=== PATIENT | male | born 1940 | race Caucasian/White ===

== ENCOUNTER 2023-06-14 07:42 | Outpatient (CLI) | payer MEDICARE, SELFPAY | END 2023-06-14 07:43 | disposition home or self-care (01) | PROVIDERS: Visit Provider Internal Medicine | DX: I48.0 Paroxysmal atrial fibrillation (principal); I35.1 Nonrheumatic aortic (valve) insufficiency; I34.0 Nonrheumatic mitral (valve) insufficiency; I42.9 Cardiomyopathy, unspecified; I10 Essential (primary) hypertension; I48.92 Unspecified atrial flutter; I77.89 Other specified disorders of arteries and arterioles; Z86.79 Personal history of other diseases of the circulatory system | CPT/HCPCS: 93306 ==

== ENCOUNTER 2023-08-12 13:38 | Outpatient (CLI) | payer MEDICARE, SELFPAY ==
--- NOTE | 2023-08-12 14:00 | CRLHL7_ITS ---
For Patients: As a result of the Century Cures Act, medical imaging exams and procedure reports are released immediately into your electronic medical record. You may view this report before your referring provider. If you have questions, please contact your health care provider. DXA BONE MINERAL DENSITY STUDY Current height (in): 7.20. Weight (lb): 175.0. Menopause age: Not applicable. Ethnicity: White. 1. Have you had a previous hip or vertebral fracture? No. 2. Have you had any fractures during your adult life which did not result from significant trauma (e.g., auto accident)? No. 3. Did either of your parents have a hip fracture? No. 4. Do you smoke? No. 5. Have you ever taken Glucocorticoids? No. 6. Do you have rheumatoid arthritis? No. 7. Do you have secondary osteoporosis? No. 8. Do you drink 3 or more alcoholic drinks per day? No. 9. Are you being treated for osteoporosis? No. 10. Have you ever taken any of the following medications: Actonel, Evista, Fosamax, Miacalcin, Reclast, Boniva, Forteo, HRT (i.e. estrogen/hormone therapy), Protelos, Prolia, Vitamin D, Calcium, other ??? please specify. ANSWER: Yes, Vitamin D, Calcium. 11. Do you have any of the following medical conditions: Anorexia or bulimia, asthma or emphysema, end stage renal disease, hyperparathyroidism, any seizure disorders, cancer, inflammatory bowel diseases, hysterectomy, other ??? please specify. ANSWER: Yes, Cancer. 12. What was your maximum height (inches)? 73. 13. Do you perform weight bearing exercise regularly? No. 14. Do you regularly consume dairy products? Yes. 15. Do you drink caffeinated beverages? Yes. TECHNIQUE: Bone mineral density study was performed using the [employer]. FINDINGS: The results of the study expressed as bone mineral density (BMD) are as follows: Lumbar spine L1 to L4: BMD: 0.927 g/cm2. T-score: -1.5. Z-score: -0.3. Neck Left: BMD: 0.635 g/cm2. T-score: -2.2 . Z-score: -0.6. Right: BMD: 0.577 g/cm2. T-score: -2.6 . Z-score:-1.0. Total Left: BMD: 0.743 g/cm2. T-score: -1.9 . Z-score: -0.8. Right: BMD: 0.674 g/cm2. T-score: -2.4 . Z-score: -0.8. VFA of thoracolumbar spine from T10-L4 demonstrates no vertebral body compression fracture. IMPRESSION: Osteoporosis. *Comparison exams done prior to 08/2019 were performed on different unit, mktg. Srikanth Tejeda M.D. Diagnostic Radiologist [email or web address] DSM/kiko JR/Dictated by: Srikanth Tejeda MD @ 08/16/2023 7:09:00 AM (Electronically Signed)
== END 2023-08-12 13:39 | disposition home or self-care (01) ==
LOC: RAD 13:41
PROVIDERS: Visit Provider Urology
DX: C61 Malignant neoplasm of prostate (principal); M81.0 Age-related osteoporosis without current pathological fracture
CPT/HCPCS: 77085

== ENCOUNTER 2024-01-13 16:52 | Emergency (ER) | payer MEDICARE, SELFPAY ==
[2024-01-13 17:08] VITALS: BP 176/72; PULSE 59; RESP 18; TEMP 36.4; O2SAT 98; BMI 25.2
--- NOTE | 2024-01-13 17:34 | ED.GENADULT ---
HPI - General Adult General Date Seen: 01/13/24 Chief complaint: Unspecified Complaint, Adult Stated complaint: low hemoglobin Time Seen by Provider: 01/13/24 16:56 Source: patient Mode of arrival: ambulatory Limitations: no limitations History of Present Illness HPI narrative: Patient is an 83-year-old male with a history of AFib on Eliquis and hypertension presenting to the emergency department for anemia. 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 Since then though the patient has been completely asymptomatic he states. We got a call today saying his hemoglobin was low at 7.4. He has no history of anemia that he is aware of. He spoke to the triage nurse and was told to come to the nearest emergency department. He has not noticed any blood in his stool or black tarry appearing stools. Denies fevers, chills, weakness, numbness, chest pain, current shortness of breath, abdominal pain, diarrhea, constipation, lightheadedness, dizziness. Related Data Home Medications ?Medication ?Instructions ?Recorded ?Confirmed amlodipine 10 mg tablet 10 mg PO DAILY 01/13/24 01/13/24 apixaban 5 mg tablet (Eliquis) 5 mg PO BID 01/13/24 01/13/24 metoprolol succinate 25 mg 25 mg PO DAILY 01/13/24 01/13/24 tablet,extended release 24 hr metoprolol succinate 50 mg 50 mg PO DAILY 01/13/24 01/13/24 tablet,extended release 24 hr prosteon calcium 500 mg PO BID 01/13/24 01/13/24 Allergies Allergy/AdvReac Type Severity Reaction Status Date / Time No Known Drug Allergies Allergy Verified 01/13/24 17:06 Review of Systems Status of ROS: Reports: 10 or more systems reviewed and unremarkable except as noted in History and below Exam Narrative: Exam Narrative: Const: Well-nourished, Well-developed, in no distress Eyes: PERRL, no conjunctival injection, and symmetrical lids HENT: Atraumatic external nose and ears. Moist mucous membranes. Neck: Symmetric, trachea midline, No thyromegaly. CVS: RRR, No murmurs or gallops. Peripheral pulses 2+ and equal in all extremities RESP: Unlabored respiratory effort. Clear to auscultation bilaterally. GI: Nontender/Nondistended, No rebound or guarding. MSK:Extremities w/o deformity, Normal Active ROM Skin: Warm, Dry. No rashes or lesions. Neuro: Normal Muscle tone, No focal neurological deficits. Psych: Awake, Alert, & Oriented x3. Appropriate mood and affect. Const: Vital Signs, click to edit/add: Vital Signs - 24 hr 01/13/24 17:08 Temperature 97.6 F Pulse Rate [Pulse Oximeter] 59 L Respiratory Rate 18 Blood Pressure [Ri ght Upper Arm] 176/72 H Pulse Oximetry 98 Oxygen Delivery Me thod Room Air Course Vital Signs Vital signs: Initial Vital Signs Temperature 97.6 F 01/13/24 17:08 Temperature Source Temporal Artery Scan 01/13/24 17:08 Pulse Rate 59 L 01/13/24 17:08 Respiratory Rate 18 01/13/24 17:08 Blood Pressure 176/72 H 01/13/24 17:08 Blood Pressure Mean 106 H 01/13/24 17:08 Blood Pressure Position Sitting 01/13/24 17:08 Pulse Oximetry 98 01/13/24 17:08 Oxygen Delivery Method Room Air 01/13/24 17:08 Vital Signs Temperature 97.6 F 01/13/24 17:08 Pulse Rate 59 L 01/13/24 17:08 Respiratory Rate 18 01/13/24 17:08 Blood Pressure 176/72 H 01/13/24 17:08 Pulse Oximetry 98 01/13/24 17:08 Oxygen Delivery Method Room Air 01/13/24 17:08 Temperature 97.6 F 01/13/24 17:08 Pulse Rate 59 L 01/13/24 17:08 Respiratory Rate 18 01/13/24 17:08 Blood Pressure 176/72 H 01/13/24 17:08 Pulse Oximetry 98 01/13/24 17:08 Oxygen Delivery Method Room Air 01/13/24 17:08 Medical Decision Making [facility] Narrative Medical decision making narrative: Patient is 83-year-old male presenting to emergency department for anemia. I did look at his previous records in epic and his most recent hemoglobin 1 year prior was 12.9. It was a microcytic anemia with that elevated RDW. Rest of his cell count lines were normal. I will do a fecal occult to look for signs of GI bleeding. Having no abdominal pain no other signs of internal bleeding at this time. Will order a type and screen, iron panel, ferritin, CBC, BMP, taking her psych count to better evaluate this low hemoglobin. Fecal occult is negative. His hemoglobin is up compared to yesterday is 8.5 today. It is a microcytic anemia. His iron studies are not really consistent with any particular microcytic anemia that I am aware of. CT is states his within normal limits. His sodium levels is around where it was yesterday. This is not a thing need to be admitted for. At this time I am not sure why he is anemic but he is asymptomatic and doing well with no signs of hemorrhaging anywhere and he can be discharged. I did give strict return precautions for any worsening symptoms. He and his agree with this plan. Lab Data Labs: Lab Results 01/13/24 01/13/24 01/13/24 Range/Units 17:30 17:35 18:10 WBC 6.72 (4.50-11.00) K/uL RBC 3.91 L (4.30-5.90) m/uL Hgb 8.5 L (13.5-17.5) gm/dL Hct 27.7 L (37.0-53.0) % MCV 71 L (80-100) fL MCH 22 L (26-34) pg MCHC 31 L (32-36) gm/dL RDW Coeff of Chong 15.4 (11.5-15.5) % Plt Count 315 (140-440) K/uL Neut % (Auto) 72.1 H (42.0-72.0) % Lymph % (Auto) 15.3 L (20-44) % [place] % (Auto) 8.3 (0.0-11.0) % Eos % (Auto) 3.9 (0.0-7.0) % Baso % (Auto) 0.3 (0.0-3.0) % Neut # (Auto) 4.80 (1.7-7.0) K/uL Lymph # (Auto) 1.00 (0.90-2.90) K/uL [place] # (Auto) 0.60 (0.00-0.90) K/UL Eos # (Auto) 0.30 (0.00-0.50) K/uL Baso # (Auto) 0.00 (0.00-0.30) K/uL Abs Immat Gran (auto) 0.00 (0.00-0.30) K/uL Imm/Tot Granulo (auto) 0.1 % Absolute Retic 0.06 (0.03-0.08) # Percent Retic 1.5 (0.5-2.0) % Immature Retic Fraction 28.5 H (2.3-13.4) % Retic Hgb Equivalent 20.0 L (29.0-35.0) pg Sodium 130 L (135-149) mmol/L Potassium 4.3 (3.6-5.1) mmol/L Chloride 94 L (96-114) mmol/L Carbon Dioxide 22 (20-32) mmol/L Anion Gap 14 (7-15) mEq/L BUN 21 (7-30) mg/dL Creatinine 1.4 (0.5-1.5) mg/dL Estimated Creat Clear 45.42 Estimated GFR 50 ml/min Glucose 185 H (60-115) mg/dL Calcium 9.7 (8.4-10.6) mg/dL Iron 356 H (49-181) ug/dL TIBC 329 (261-462) ug/dL % Saturation 108 H (20-50) % Ferritin 7.4 L (17.9-464.0) ng/mL TSH 3.930 (0.270-4.200) uIU/mL Stool Occult Blood Negative (Negative) Lab Acknowledgement Test Added Discharge Plan Discharge Clinical Impression: Anemia Qualifiers: Anemia type: unspecified type Qualified Code(s): D64.9 - Anemia, unspecified Instructions: Anemia (ED) Additional Instructions: If he states appearing pale, notices blood in his stool, develops weakness, shortness of breath or any other concerning symptoms return to the emergency department for re-evaluation. Follow-up with his primary care provider about this anemia. I am unsure what is causing it at this time. Prescriptions: No Action metoprolol succinate 50 mg tablet extended release 24 hr 50 mg PO DAILY amlodipine 10 mg tablet 10 mg PO DAILY metoprolol succinate 25 mg tablet extended release 24 hr 25 mg PO DAILY Eliquis 5 mg tablet 5 mg PO BID prosteon calcium 500 mg PO BID Follow Up/Referrals: Provider,Not a Local [Primary Care Provider] - Stand Alone Forms: [place] [email or web address] Info Instructions
[2024-01-13 17:52] LABS: Basophils Percent Auto 0.3 % (0.0-3.0); Immature Reticulocyte Fraction 28.5 % (2.3-13.4); RDW Coefficient of Variation % 15.4 % (11.5-15.5); Reticulocyte Percent 1.5 % (0.5-2.0); Reticulocytes Absolute 0.06 # (0.03-0.08)
[2024-01-13 18:04] LABS: Eosinophils Percent Auto 3.9 % (0.0-7.0); Hematocrit 27.7 % (37.0-53.0); Hemoglobin* 8.5 gm/dL (13.5-17.5); Immature Granulocytes Pct Auto 0.1 %; Lymphocytes Percent Auto 15.3 % (20-44); Mean Corpuscular HGB Conc 31 gm/dL (32-36); Mean Corpuscular Hemoglobin 22 pg (26-34); Mean Corpuscular Volume 71 fL (80-100); Monocytes Percent Auto 8.3 % (0.0-11.0); Neutrophils Percent Auto 72.1 % (42.0-72.0); Platelet Count* 315 K/uL (140-440); Red Blood Count 3.91 m/uL (4.30-5.90); Slide Review Reflex No; White Blood Count* 6.72 K/uL (4.50-11.00)
[2024-01-13 18:19] LABS: Chloride* 94 mmol/L (96-114); Potassium* 4.3 mmol/L (3.6-5.1); Sodium* 130 mmol/L (135-149)
[2024-01-13 18:22] LABS: Anion Gap 14 mEq/L (7-15); Blood Urea Nitrogen* 21 mg/dL (7-30); Calcium* 9.7 mg/dL (8.4-10.6); Carbon Dioxide* 22 mmol/L (20-32); Creatinine* 1.4 mg/dL (0.5-1.5); Est. Creatinine Clearance* 45.42; Estimated Glomerular Filt Rate 50 ml/min; Glucose* 185 mg/dL (60-115)
[2024-01-13 18:26] LABS: Iron* 356 ug/dL (49-181)
[2024-01-13 18:35] LABS: Total Iron Binding Capacity 329 ug/dL (261-462)
[2024-01-13 18:40] LABS: Fecal Occult Blood* Negative (Negative)
[2024-01-13 18:45] LABS: Percent Iron Saturation 108 % (20-50)
[2024-01-13 18:58] LABS: Ferritin* 7.4 ng/mL (17.9-464.0)
== END 2024-01-13 19:22 | disposition home or self-care (01) ==
PROVIDERS: Emergency Provider Student in an Organized Health Care Education/Training Program
DX: D64.9 Anemia, unspecified (principal)
CPT/HCPCS: 36415; 80048; 82270; 82728; 83540; 83550; 84443; 85025; 85045; 86850; 86900; 86901; 99283